=== PATIENT | male | born 1970 | race Caucasian/White ===

== ENCOUNTER 2017-05-14 08:43 | Emergency (ER) | payer SELFPAY ==
[2017-05-14 08:50] VITALS: BP 126/89; PULSE 71; TEMP 98; BMI 25.9
[2017-05-14] MEDS ORDERED: KETOROLAC TROMETHAMINE 60 MG/2 ML VIAL IM ONE ×2 (09:22→09:31)
--- NOTE | 2017-05-14 09:22 | PDOC ---
History of Present Illness - General Chief Complaint: Pain Stated Complaint: PAIN/ LT SHOULDER, BACK Time Seen by Provider: 05/14/17 09:08 History Source: Patient Exam Limitations: Language Barrier (rico kennedy [id number] ) - History of Present Illness Initial Comments: 05/14/17 09:22 47 yr male no past medical history presents with c/o pain to the left posterior back and left front chest started this am when putting on his coat , pt states he "made a wrong move". Pt denies nausea, SOB no recent travel. Pt denies drugs , ETOH or smoking. Timing/Duration: 1 hour Severity: mild Modifying Factors: improves with: movement Past History - Past Medical History Allergies/Adverse Reactions: Allergies Allergy/AdvReac Type Severity Reaction Status Date / Time No Known Allergies Allergy Verified 05/14/17 08:50 Home Medications: Ambulatory Orders No Home Medications 0 dose .ROUTE UTDICT 05/27/13 Naproxen [Naprosyn -] 500 mg PO BID PRN #14 tablet 05/14/17 COPD: No GI Disorders: Yes (HERNIA) - Surgical History Abdominal Surgery: Yes (HERNIA REPAIR) Cholecystectomy: Yes (UNKNOWN, H/O STONE) - Suicide/Smoking/Psychosocial Hx Smoking History: Never smoked Hx Alcohol Use: No Substance Use Type: None Review of Systems - Review of Systems Able to Perform ROS?: Yes Is the patient limited British proficient: No Constitutional: No: Symptoms Reported, Unintentional Wgt. Loss HEENTM: No: Symptoms Reported Respiratory: No: Symptoms reported Cardiac (ROS): No: Symptoms Reported ABD/GI: No: Symptoms Reported : No: Symptoms Reported Musculoskeletal: Yes: See HPI *Physical Exam - Vital Signs Last Vital Signs Temp Pulse Resp BP Pulse Ox 98 F 71 18 126/89 100 05/14/17 08:46 05/14/17 08:46 05/14/17 08:46 05/14/17 08:46 05/14/17 08:46 - Physical Exam General Appearance: Yes: Nourished, Appropriately Dressed HEENT: positive: EOMI, JERRI, Normal ENT Inspection, TMs Normal, Pharynx Normal Neck: positive: Supple. negative: Tender Respiratory/Chest: positive: Chest Tender (left anterior chest wall ttp , reproduced with movement ), Lungs Clear, Normal Breath Sounds Cardiovascular: positive: Regular Rhythm, Regular Rate Gastrointestinal/Abdominal: positive: Normal Bowel Sounds, Soft Musculoskeletal: positive: Normal Inspection Extremity: positive: Normal Capillary Refill, Normal Inspection, Normal Range of Motion. negative: Tender Integumentary: positive: Normal Color, Dry, Warm Neurologic: positive: Fully Oriented, Alert, Normal Mood/Affect, Normal Response , Motor Strength 5/5 Heart Score/ECG Review - History History: Slightly suspicious - ECG Intrepretation Rhythm: Regular Rhythm - [place]: Normal - ECG Impressions Normal ECG: Yes Non-specific ST Elevation: No Ischemic Changes: No Medical Decision Making - Medical Decision Making 05/14/17 10:10 cc: left sided posterior shoulder and left anterior chest pain this am started after putting on coat and felt a pulling pain reproduced with movement denies SOB denies nausea or vomiting. will get EKG toradol and CXR pt has no risk factors for CAD 05/14/17 10:32 EKG NSR CXR normal pt feels better after the toradol injection *DC/Admit/Observation/Transfer Diagnosis at time of Disposition: Muscle strain - Discharge Dispostion Disposition: HOME Condition at time of disposition: Improved - Prescriptions Prescriptions: Naproxen [Naprosyn -] 500 mg PO BID PRN #14 tablet PRN Reason: Back Pain - Referrals Referrals: Patrick Gallardo MD [Staff Physician] - - Patient Instructions Printed Discharge Instructions: Muscle Strain Additional Instructions: drink pleanty of water take the pain medication as prescribed avoid heavy lifting or bending return to ER for any worsening symptoms beber abundante agua talib el analgsico rabia se lo recetaron evitar levantar objetos pesados o doblarse volver a la reuben de emergencias por cualquier empeoramiento de los sntomas Print Language: [id number] - Post Discharge Activity Forms/Work/School Notes: Back to Work
[2017-05-14] MEDS ORDERED: KETOROLAC TROMETHAMINE 60 MG/2 ML VIAL ONE (09:34)
== END 2017-05-14 10:44 | disposition home or self-care (01) ==
LOC: JERFT 08:43
DX: J06.9 Acute upper respiratory infection, unspecified (principal); A08.4 Viral intestinal infection, unspecified
CPT/HCPCS: 71020-TC; 99281-25